=== PATIENT | female | born 2000 | race Two or more races ===

== ENCOUNTER 2022-01-11 19:18 | Emergency (ER) ==
[~2022-01-11] VITALS: Ht 154.9 cm; Wt 72.3 kg
[2022-01-11 19:19] VITALS: BP 120/73
[2022-01-11 21:40] LABS: URINE PREG TEST POSITIVE (NEGATIVE)
[2022-01-11 21:51] LABS: SQUAMOUS EPITHELIAL CELL URINE MOD AMOUNT /hpf (SMALL AMT)
[2022-01-11 21:52] LABS: BACTERIA, URINE MOD AMOUNT; HYALINE CAST, URINE NONE SEEN /lpf (0-1)
== END 2022-01-11 23:05 | disposition left against medical advice (07) ==
LOC: M ED 19:18
DX: Z53.21 Procedure and treatment not carried out due to patient leaving prior to being seen by health care provider (principal)

== ENCOUNTER → 2022-02-11 | Outpatient (CLI) | payer OTHER ==
[2022-02-11 14:00] LABS: BASO % 0.4 % (0.0-1.0); EOS % 0.4 % (0.0-3.0); HEMATOCRIT 37.5 % (36.0-47.0); HEMOGLOBIN 12.7 g/dl (12.0-15.5); LYMPH % 21.8 % (24.0-44.0); MEAN CORPUSCULAR HEMOGLOBIN 31.2 pg (27.0-33.0); MEAN CORPUSCULAR HGB CONC 33.9 g/dl (32.0-36.5); MEAN CORPUSCULAR VOLUME 92.1 fl (80.0-96.0); MONO # 0.5 10^3/uL (0.0-0.8); MONO % 5.1 % (2.0-8.0); NEUTROPHILS # 6.6 10^3/uL (1.5-8.5); NEUTROPHILS % 71.8 % (36.0-66.0); PLATELET COUNT, AUTOMATED 227 10^3/uL (150-450); RED BLOOD COUNT 4.07 10^6/uL (4.00-5.40); WHITE BLOOD COUNT 9.2 10^3/uL (4.0-10.0)
[2022-02-11 15:51] LABS: HEPATITIS C VIRUS ABY INDEX < 0.0 INDEX (<0.8); HIV 1&2 SCREEN CENTAUR NEGATIVE (NEGATIVE)
[2022-02-11 17:42] LABS: GC DNA AMPLIFICATION NEGATIVE (NEGATIVE)
== END ==
LOC: M PLALAB 10:43
PROVIDERS: ATTEND Advanced Practice Midwife
DX: Z34.91 Encounter for supervision of normal pregnancy, unspecified, first trimester (principal)

== ENCOUNTER → 2022-04-04 | Outpatient (REF) | payer OTHER | LOC: M SFHCWAGY 10:03 | PROVIDERS: ATTEND Advanced Practice Midwife | DX: Z34.82 Encounter for supervision of other normal pregnancy, second trimester (principal) ==

== ENCOUNTER → 2022-04-08 | Outpatient (CLI) | payer OTHER | LOC: M WHC 09:08 | PROVIDERS: ATTEND Advanced Practice Midwife | DX: O99.342 Other mental disorders complicating pregnancy, second trimester (principal); F41.8 Other specified anxiety disorders; O34.211 Maternal care for low transverse scar from previous cesarean delivery; Z3A.19 19 weeks gestation of pregnancy ==

== ENCOUNTER → 2022-05-23 | Outpatient (CLI) | payer OTHER | LOC: M WHC 13:04 | PROVIDERS: ATTEND Advanced Practice Midwife | DX: Z34.92 Encounter for supervision of normal pregnancy, unspecified, second trimester (principal); Z3A.26 26 weeks gestation of pregnancy ==

== ENCOUNTER 2022-06-14 17:49 | Outpatient (CLI) | payer OTHER ==
[~2022-06-14] VITALS: Ht 154.9 cm; Wt 81.8 kg
[2022-06-14 18:04] VITALS: BP 104/53
[2022-06-14] MEDS ORDERED: PRENTAB9 PO (18:04)
[2022-06-14] MEDS ORDERED: HOME MED LIST COMPLETE! XX SCH (18:05)
== END 2022-06-14 20:19 | disposition home or self-care (01) ==
LOC: M LDO 17:49
PROVIDERS: ATTEND Advanced Practice Midwife
DX: O36.8130 Decreased fetal movements, third trimester, not applicable or unspecified (principal); O26.893 Other specified pregnancy related conditions, third trimester; M54.50 Low back pain, unspecified; Z3A.29 29 weeks gestation of pregnancy

== ENCOUNTER → 2022-06-17 | Outpatient (CLI) | payer OTHER ==
[~2022-06-17] MED LIST: PRENTAB9 PO
[2022-06-17 15:25] LABS: HEMATOCRIT 31.4 % (36.0-47.0); HEMOGLOBIN 10.6 g/dl (12.0-15.5); MEAN CORPUSCULAR HEMOGLOBIN 31.9 pg (27.0-33.0); MEAN CORPUSCULAR HGB CONC 33.8 g/dl (32.0-36.5); MEAN CORPUSCULAR VOLUME 94.6 fl (80.0-96.0); PLATELET COUNT, AUTOMATED 187 10^3/uL (150-450); RED BLOOD COUNT 3.32 10^6/uL (4.00-5.40); WHITE BLOOD COUNT 11.2 10^3/uL (4.0-10.0)
[2022-06-17 17:03] LABS: GC DNA AMPLIFICATION NEGATIVE (NEGATIVE)
== END ==
LOC: M PLALAB 11:54
PROVIDERS: ATTEND Advanced Practice Midwife
DX: Z36.89 Encounter for other specified antenatal screening (principal)

== ENCOUNTER → 2022-08-01 | Outpatient (REF) | payer OTHER ==
[~2022-08-01] MED LIST changes: +ACET325C5 PO; +ZOLO50TA PO
== END ==
LOC: M SFHCWAGY 13:20
PROVIDERS: ATTEND Obstetrics & Gynecology
DX: Z36.85 Encounter for antenatal screening for Streptococcus B (principal)

== ENCOUNTER → 2022-08-15 | Outpatient (CLI) | payer OTHER | LOC: M LABSMTC 09:41 | PROVIDERS: ATTEND Anesthesiology | DX: Z01.818 Encounter for other preprocedural examination (principal) ==

== ENCOUNTER → 2023-01-07 | Outpatient (REF) | payer OTHER ==
[~2023-01-07] MED LIST changes: +COLA100C5 PO; +FERR1TAB8 PO; +IBUP80TA PO; +PERCOCET PO; +TUMS500C PO
[2023-01-07 15:06] LABS: GC DNA AMPLIFICATION NEGATIVE (NEGATIVE)
== END ==
LOC: M SFHCWAGY 13:17
PROVIDERS: ATTEND Obstetrics & Gynecology
DX: Z12.4 Encounter for screening for malignant neoplasm of cervix (principal)

== ENCOUNTER 2023-04-28 12:35 | Emergency (ER) | payer OTHER ==
[~2023-04-28] VITALS: Ht 154.9 cm; Wt 77.4 kg
[2023-04-28 12:36] VITALS: BP 124/77; TEMP 96.3; O2SAT 99
[2023-04-28] MEDS ORDERED: PREN1TAB18 PO (13:11)
== END 2023-04-28 13:47 | disposition left against medical advice (07) ==
LOC: M ED 12:35
DX: Z53.21 Procedure and treatment not carried out due to patient leaving prior to being seen by health care provider (principal)

== ENCOUNTER → 2023-09-03 | Outpatient (CLI) | payer OTHER ==
[~2023-09-03] MED LIST changes: +PREN1TAB18 PO
[2023-09-03 18:06] LABS: HEMATOCRIT 35.5 % (36.0-47.0); HEMOGLOBIN 12.4 g/dl (12.0-15.5); MEAN CORPUSCULAR HGB CONC 34.9 g/dl (32.0-36.5); MEAN CORPUSCULAR VOLUME 91.5 fl (80.0-96.0); PLATELET COUNT, AUTOMATED 247 10^3/uL (150-450); RED BLOOD COUNT 3.88 10^6/uL (4.00-5.40); WHITE BLOOD COUNT 9.7 10^3/uL (4.0-10.0)
[2023-09-03 19:00] LABS: HIV 1&2 SCREEN NEGATIVE (NEGATIVE)
[2023-09-03 19:08] LABS: HEPATITIS C VIRUS ABY INDEX < 0.02 INDEX (<0.8)
== END ==
LOC: M PLALAB 15:22
PROVIDERS: ATTEND Advanced Practice Midwife
DX: O34.211 Maternal care for low transverse scar from previous cesarean delivery (principal); Z3A.00 Weeks of gestation of pregnancy not specified

== ENCOUNTER → 2023-10-01 | Outpatient (REF) | payer OTHER ==
[2023-10-01 15:04] LABS: GC DNA AMPLIFICATION NEGATIVE (NEGATIVE)
== END ==
LOC: M SFHCWAGY 12:41
PROVIDERS: ATTEND Advanced Practice Midwife
DX: O34.211 Maternal care for low transverse scar from previous cesarean delivery (principal)

== ENCOUNTER → 2023-11-05 | Outpatient (CLI) | payer OTHER | LOC: M WHC 09:10 | PROVIDERS: ATTEND Advanced Practice Midwife | DX: Z34.82 Encounter for supervision of other normal pregnancy, second trimester (principal) ==

== ENCOUNTER → 2023-12-30 | Outpatient (CLI) | payer OTHER | LOC: M WHC 06:49 | PROVIDERS: ATTEND Obstetrics & Gynecology | DX: O99.212 Obesity complicating pregnancy, second trimester (principal); Z3A.26 26 weeks gestation of pregnancy ==

== ENCOUNTER → 2024-01-21 | Outpatient (CLI) | payer OTHER ==
[2024-01-21 13:01] LABS: GLUCOSE CHALLENGE TEST 1 HOUR 146 MG/DL (LESS THAN 140); HEMATOCRIT 31.8 % (36.0-47.0); HEMOGLOBIN 11.2 g/dl (12.0-15.5); MEAN CORPUSCULAR HEMOGLOBIN 32.2 pg (27.0-33.0); MEAN CORPUSCULAR HGB CONC 35.2 g/dl (32.0-36.5); MEAN CORPUSCULAR VOLUME 91.4 fl (80.0-96.0); PLATELET COUNT, AUTOMATED 213 10^3/uL (150-450); RED BLOOD COUNT 3.48 10^6/uL (4.00-5.40); WHITE BLOOD COUNT 8.2 10^3/uL (4.0-10.0)
[2024-01-21 13:36] LABS: HIV 1&2 SCREEN NEGATIVE (NEGATIVE)
[2024-01-21 13:44] LABS: HEPATITIS C VIRUS ABY INDEX < 0.02 INDEX (<0.8)
[2024-01-21 13:58] LABS: GC DNA AMPLIFICATION NEGATIVE (NEGATIVE)
== END ==
LOC: M PLALAB 09:54
PROVIDERS: ATTEND Obstetrics & Gynecology
DX: O99.212 Obesity complicating pregnancy, second trimester (principal); Z3A.00 Weeks of gestation of pregnancy not specified

== ENCOUNTER → 2024-02-16 | Outpatient (CLI) | payer OTHER | LOC: M WHC 08:24 | PROVIDERS: ATTEND Obstetrics & Gynecology | DX: O34.219 Maternal care for unspecified type scar from previous cesarean delivery (principal); Z3A.00 Weeks of gestation of pregnancy not specified; Z53.9 Procedure and treatment not carried out, unspecified reason ==

== ENCOUNTER → 2024-02-27 | Outpatient (REF) | payer OTHER | LOC: M PLALAB 13:48 | PROVIDERS: ATTEND Obstetrics & Gynecology | DX: Z3A.36 36 weeks gestation of pregnancy (principal); Z53.9 Procedure and treatment not carried out, unspecified reason ==

== ENCOUNTER → 2024-03-01 | Outpatient (REF) | payer OTHER | LOC: M SFHCWAGY 12:18 | PROVIDERS: ATTEND Obstetrics & Gynecology | DX: Z36.89 Encounter for other specified antenatal screening (principal); Z3A.36 36 weeks gestation of pregnancy ==

== ENCOUNTER → 2024-03-09 | Outpatient (CLI) | payer OTHER | LOC: M RAD 06:45 | PROVIDERS: ATTEND Obstetrics & Gynecology | DX: O34.219 Maternal care for unspecified type scar from previous cesarean delivery (principal); Z3A.36 36 weeks gestation of pregnancy ==

== ENCOUNTER 2024-03-24 05:03 | Inpatient (IN) | payer OTHER ==
[~2024-03-24] VITALS: Ht 154.9 cm; Wt 94.8 kg
[2024-03-24] VITALS (10 sets, daily range): BP systolic 115–141; BP diastolic 64–85; TEMP 97.4; O2SAT 97–100
[2024-03-24] MEDS: LACTATED RINGER'S 1000 ML IV STA (05:21)
[2024-03-24] MEDS: ceFAZolin SOD 2 GM in IV 1 EA IV ONE (05:25)
[2024-03-24 07:00] LABS: HEMOGLOBIN 10.9 g/dl (12.0-15.5); MEAN CORPUSCULAR HEMOGLOBIN 28.8 pg (27.0-33.0); MEAN CORPUSCULAR VOLUME 87.3 fl (80.0-96.0); PLATELET COUNT, AUTOMATED 190 10^3/uL (150-450); RED BLOOD COUNT 3.78 10^6/uL (4.00-5.40); WHITE BLOOD COUNT 7.9 10^3/uL (4.0-10.0)
[2024-03-24] MEDS: BICITRA 30ML SOLN UDC PO ONE (07:43)
[2024-03-24 08:14] LABS: HEPATITIS C VIRUS ABY INDEX < 0.02 INDEX (<0.8)
[2024-03-24] MEDS ORDERED: MORPHINE PRES-FREE INJ 10 MG/10 ML VIAL As Ordered ONE (08:15)
[2024-03-24] MEDS ORDERED: OXYTOCIN INJ 10UNITS/ML 1ML VIAL As Ordered ONE (08:15)
[2024-03-24] MEDS ORDERED: fentaNYL 100 MCG/2 ML INJECTION As Ordered ONE (08:15)
[2024-03-24] MEDS ORDERED: PHENYLephrine 500MCG 5ML (100MCG/ML) SYRINGE As Ordered ONE (08:15)
[2024-03-24] MEDS ORDERED: ONDANSETRON 4MG 2ML VIAL As Ordered ONE (08:20)
[2024-03-24] MEDS ORDERED: ePHEDrine SULFATE 25 MG/5 ML(5MG/ML) SYRINGE As Ordered ONE (08:21)
[2024-03-24 08:43] LABS: CORD GAS ABE A -4.1; CORD GAS ABE V -2.2; CORD GAS HCO3 A 21.2 MMOL/L; CORD GAS HCO3 V 22.9 MMOL/L; CORD GAS O2 SAT A 84.9 %; CORD GAS O2 SAT V 81.6 %; CORD GAS PCO2 A 39.8 mmHg; CORD GAS PCO2 V 40.6 mmHg; CORD GAS PH A 7.344 UNITS; CORD GAS PH V 7.37 UNITS; CORD GAS PO2 A 39.2 mmHg; CORD GAS PO2 V 35.7 mmHg; CORD GAS SBC A 20.8 MMOL/L; CORD GAS SBC V 22.3 MMOL/L; CORD GAS TCO2 A 22.4 MMOL/L; CORD GAS TCO2 V 24.2 MMOL/L
[2024-03-24] MEDS ORDERED: KETOROLAC 60MG 2ML VIAL As Ordered ONE (09:03)
[2024-03-24] MEDS ORDERED: RHOGAM 300MCG (1500IU) INJ IM SCH (09:25)
[2024-03-24] MEDS ORDERED: SIMETHICONE 80MG CHEW TAB PO PRN (09:25)
[2024-03-24] MEDS ORDERED: ONDANSETRON 4MG 2ML VIAL IV PRN ×2 (09:25→10:00)
[2024-03-24] MEDS ORDERED: ACETAMINOPHEN 500 MG TAB PO PRN (09:25)
[2024-03-24] MEDS ORDERED: oxyCODONE 5MG TAB PO PRN ×3 (09:25→10:00)
[2024-03-24] MEDS ORDERED: diphenhydrAMINE 50MG/ML VIAL IV PRN (10:00)
[2024-03-24] MEDS ORDERED: MEPERIDINE 25 MG/ML 1ML VIAL IV PRN (10:00)
[2024-03-24] MEDS ORDERED: **NOTE PATIENT COMMENT** MISC XX SCH (10:00)
[2024-03-24] MEDS ORDERED: NALBUPHINE HCL 10 MG/ML 1ML AMP IV PRN (10:00)
[2024-03-24] MEDS ORDERED: NALOXONE INJ 0.4MG/1ML VIAL IV PRN ×2 (10:00)
[2024-03-24] MEDS: SLF 3 ML SYR IV SCH (10:30)
[2024-03-24] MEDS: LR 1,000 ML IV SCH (10:31)
[2024-03-24] MEDS: KETOROLAC 30 MG/ML 1ML VIAL IV SCH (15:25)
[2024-03-24] MEDS: DOCUSATE SODIUM 100MG CAPSULE PO SCH (21:00)
[2024-03-25 02:00] VITALS: BP 132/72; O2SAT 98
[2024-03-25 06:00] VITALS: BP 121/76; O2SAT 99
[2024-03-25 06:18] LABS: HEMATOCRIT 27.7 % (36.0-47.0); HEMOGLOBIN 9.2 g/dl (12.0-15.5); MEAN CORPUSCULAR HEMOGLOBIN 29.4 pg (27.0-33.0); MEAN CORPUSCULAR HGB CONC 33.2 g/dl (32.0-36.5); MEAN CORPUSCULAR VOLUME 88.5 fl (80.0-96.0); PLATELET COUNT, AUTOMATED 155 10^3/uL (150-450); RED BLOOD COUNT 3.13 10^6/uL (4.00-5.40); WHITE BLOOD COUNT 8.5 10^3/uL (4.0-10.0)
[2024-03-25] MEDS: PRENATAL VITAMINS CHEWABLE TABLET PO SCH (08:57)
[2024-03-25] MEDS ORDERED: PRENATAL VITAMINS CHEWABLE TABLET PO SCH (09:00)
[2024-03-25 10:10] VITALS: BP 139/84; O2SAT 99
[2024-03-25] MEDS ORDERED: IBUPROFEN 800 MG TAB PO SCH (11:00)
[2024-03-25] MEDS ORDERED: IBUP1TAB7 PO (11:02)
[2024-03-25] MEDS ORDERED: ACET-839 PO (11:02)
[2024-03-25] MEDS: IBUPROFEN 100MG 5ML SUSP UDC DYE FREE PO SCH (12:10)
[2024-03-25 14:00] VITALS: BP 137/82; O2SAT 98
[2024-03-25 18:08] VITALS: BP 138/87; O2SAT 100
[2024-03-25 22:00] VITALS: BP 120/82; O2SAT 97
[2024-03-26 02:00] VITALS: BP 128/72; O2SAT 98
[2024-03-26] MEDS: MOM 30ML SUSPENSION UDC PO PRN (03:50)
[2024-03-26] MEDS: diphenhydrAMINE 25MG CAP PO ONE (03:50)
[2024-03-26 06:00] VITALS: BP 136/75; O2SAT 98
[2024-03-26] MEDS: MEASLES,MUMPS,RUBELLA VACCINE INJ (MMR-II) SC.IMMUN ONE (07:55)
[2024-03-26] MEDS ORDERED: OXYC-517 PO (09:06)
== END 2024-03-26 12:05 | disposition home or self-care (01) | DRG 540 ==
LOC: M LDI 05:03 → M OBS 11:02
PROVIDERS: ADMIT Obstetrics & Gynecology; ATTEND Obstetrics & Gynecology
PROC: 0UB70ZZ Excision of Bilateral Fallopian Tubes, Open Approach (ICD-10-PCS; 2024-03-24)
PROC: 10D00Z1 Extraction of Products of Conception, Low, Open Approach (ICD-10-PCS; principal; 2024-03-24 07:30)
DX: O34.211 Maternal care for low transverse scar from previous cesarean delivery (principal); Z37.0 Single live birth; Z3A.39 39 weeks gestation of pregnancy; Z30.2 Encounter for sterilization; O24.429 Gestational diabetes mellitus in childbirth, unspecified control